=== PATIENT | male | born 1960 | race Caucasian/White ===

== ENCOUNTER 2018-07-07 12:54 | Emergency (ER) | payer BC ==
[2018-07-07] MEDS ORDERED: Aspirin 81 MG Tab.Chew PO ONE (13:21)
--- NOTE | 2018-07-07 13:25 | EDM.PDOC ---
ED HPI GENERAL MEDICAL PROBLEM - General Chief Complaint: Chest Pain Stated Complaint: CHEST TIGHTNESS X 2 DAYS Time Seen by Provider: 07/07/18 13:20 Source of Information: Reports: Patient History Limitations: Reports: No Limitations - History of Present Illness INITIAL COMMENTS - FREE TEXT/NARRATIVE: 57-year-old male presents to the ED with some retrosternal pressure discomfort rating slightly to the right of the sternum. Is in the midline and does not radiate through his back. No associated abdominal aphasia. Not prone to heart burn. He's been ill with upper respiratory tract infection and does have a mild paroxysmal productive cough. Remains nasally congested. He came across from the clinic where he had just been seen. He is placed on amoxicillin 500 mg 3 times a day for suspect sinus infection. They advised him to come to the ED for further evaluation in case she was having cardiac problems. Patient has no history of cardiac disease. He does have high cholesterol and is on a statin for this. Describes the pain as a very vague pressure discomfort maybe 1 or 2 out of 10. Onset: Today Onset Date: 07/07/18 Onset Time: 07:00 (Started this morning after he got up for the day.) Duration: Hour(s):, Constant Location: Reports: Chest Quality: Reports: Ache (Central chest discomfort perhaps a little more to the right of the sternum than the left.), Dull (Described as a dull mild ache discomfort) Severity: Mild (One or 210) Improves with: Reports: None Worsens with: Reports: None Context: Denies: Activity, Exercise, Lifting, Sick Contact, Trauma, Other Associated Symptoms: Reports: Chest Pain, Cough, cough w sputum (Till has a cough and does bring up occasional sputum.), Loss of Appetite (Has been ill with upper respiratory tract infection and has lost his sense of taste for a little bit), Other. Denies: No Other Symptoms (See history of present illness) , Confusion, Diaphoresis, Fever/Chills, Headaches, Malaise, Nausea/Vomiting, Rash, Seizure, Shortness of Breath, Syncope Treatments TOURIST GUIDE: Reports: Other (see below) Chest Pain Score (Numeric/FACES): 1 - Related Data Allergies Allergy/AdvReac Type Severity Reaction Status Date / Time guaifenesin [From Mucinex] Allergy Nausea Verified 07/07/18 13:19 neomycin Allergy Nausea Verified 07/07/18 13:19 shrimp Allergy Nausea Verified 07/07/18 13:19 Home Meds: Home Meds Amoxicillin 500 mg PO BID 07/07/18 [History] Levothyroxine Sodium [Synthroid] 175 mcg PO DAILY 07/07/18 [History] Pravastatin Sodium 20 mg PO DAILY 07/07/18 [History] Past Medical History HEENT History: Reports: Sinusitis Cardiovascular History: Reports: High Cholesterol Endocrine/Metabolic History: Reports: Hypothyroidism (Is on levothyroxine supplement.) - Past Surgical History Musculoskeletal Surgical History: Reports: Hip Replacement Other Musculoskeletal Surgeries/Procedures:: left Social & Family History - Tobacco Use Smoking Status *Q: Never Smoker - Caffeine Use Caffeine Use: Reports: Coffee, Soda - Recreational Drug Use Recreational Drug Use: No - Living Situation & Occupation Living situation: Reports: Occupation: Employed ED ROS GENERAL - Review of Systems Review Of Systems: See Below Constitutional: Reports: Fatigue (Is getting over a bad cold.), Decreased Appetite. Denies: Fever, Chills, Malaise HEENT: Reports: Sinus Problem Respiratory: Reports: Cough, Sputum. Denies: Wheezing, Pleuritic Chest Pain, Hemoptysis Cardiovascular: Reports: Chest Pain (Occasional sputum production some central pressure chest heaviness today. Therefore advised to come across from the clinic for checkup.), Blood Pressure Problem. Denies: Claudication, Dyspnea on Exertion, Edema, Lightheadedness, Orthopnea (Usually blood pressure is okay. Is slightly elevated 153/97 now.), Palpitations Endocrine: Reports: No Symptoms GI/Abdominal: Reports: Decreased Appetite : Reports: No Symptoms Musculoskeletal: Reports: No Symptoms Skin: Reports: No Symptoms Neurological: Reports: No Symptoms Psychiatric: Reports: No Symptoms Hematologic/Lymphatic: Reports: No Symptoms ED EXAM, GENERAL - Physical Exam Exam: See Below Exam Limited By: No Limitations General Appearance: Alert, WD/WN, No Apparent Distress, Other Eye Exam: Bilateral Eye: Normal Inspection Throat/Mouth: Normal Inspection, Normal Lips, Normal Oropharynx Head: Atraumatic, Normocephalic Neck: Normal Inspection, Supple, Non-Tender. No: Full Range of Motion, Carotid Bruit, Lymphadenopathy (R) Respiratory/Chest: No Respiratory Distress, Lungs Clear, Normal Breath Sounds ( Mild tachypnea at rest 20/m. O2 sats are 99% on room air.), No Accessory Muscle Use, Respiratory Distress Cardiovascular: Normal Peripheral Pulses, Regular Rate, Rhythm, No Edema, No Gallop, No Murmur, No Rub Peripheral Pulses: 3+: Posterior Tibial (L), Posterior Tibial (R), Dorsalis Pedis (L), Dorsalis Pedis (R) GI/Abdominal: Normal Bowel Sounds, Soft, Non-Tender, No Organomegaly, No Abnormal Bruit, No Mass, Pelvis Stable Back Exam: Normal Inspection, Full Range of Motion. No: CVA Tenderness (L), CVA Tenderness (R) Extremities: Normal Inspection, Normal Range of Motion, Non-Tender, No Pedal Edema Neurological: Alert, Oriented, CN II-XII Intact, Normal Cognition, Normal Gait Psychiatric: Normal Affect, Normal Mood Skin Exam: Warm, Dry, Intact, Normal Color, No Rash EKG INTERPRETATION EKG Date: 07/07/18 Time: 13:18 Rhythm: NSR Rate (Beats/Min): 87 Diboll: LAD-Left Diboll Deviation (-25) P-Wave: Present (P-wave is inverted in V1 suggesting ectopic atrial beat.) QRS: Other (There are near Q waves in leads V1 and V2 and V3 suggesting an old anteroseptal myocardial infarction. There is decreased voltage in leads V4 to V6 suggestive of COPD pattern. So near Q waves in 3 and aVF suggestive of an old inferior wall myocardial infarction. I'll R-wave in one is suggestive of left ventricular hypertrophy pattern) ST-T: Other (There is T-wave flattening in leads 3 and aVF. Nonspecific finding) QT: Prolonged (Borderline prolonged.) EKG Interpretation Comments: Abnormal ECG. No signs of acute ischemia however Course - Vital Signs Last Recorded V/S: Last Vital Signs Temp 36.6 C 07/07/18 13:11 Pulse 92 07/07/18 13:11 Resp 20 07/07/18 13:11 BP 153/97 H 07/07/18 13:11 Pulse Ox 99 07/07/18 13:11 - Orders/Labs/Meds Orders: Active Orders 24 hr Category Date Time Status EKG Documentation Completion [RC] STAT Care 07/07/18 13:20 Active C-REACTIVE PROTEIN [CHEM] Stat Lab 07/07/18 13:10 Results CBC WITH MANUAL DIFF [HEME] Stat Lab 07/07/18 13:10 Results CKMB [CHEM] Stat Lab 07/07/18 13:10 Results COMPREHENSIVE METABOLIC PN,CMP [CHEM] Stat Lab 07/07/18 13:10 Results MAGNESIUM [CHEM] Stat Lab 07/07/18 13:10 Results TROPONIN I [CHEM] Stat Lab 07/07/18 13:10 Results Labs: Laboratory Tests 07/07/18 07/07/18 07/07/18 Range/Units 13:10 13:10 13:10 WBC 9.16 H (4.23-9.07) K/mm3 RBC 5.48 (4.63-6.08) M/mm3 Hgb 16.7 (13.7-17.5) gm/L Hct 50.1 (40.1-51.0) % MCV 91.4 (79.0-92.2) fl MCH 30.5 (25.7-32.2) pg MCHC 33.3 (32.2-35.5) g/dl RDW Std Deviation 45.6 H (35.1-43.9) fL Plt Count 261 (163-337) K/mm3 MPV 11.2 (9.4-12.3) fl Sodium 140 (136-145) mEq/L Potassium 4.0 (3.5-5.1) mEq/L Chloride 103 (98-107) mEq/L Carbon Dioxide 28 (21-32) mEq/L Anion Gap 13.0 (5-15) BUN 15 (7-18) mg/dL Creatinine 1.2 (0.7-1.3) mg/dL Est Cr Clr Drug Dosing 68.44 mL/min Estimated GFR (MDRD) > 60 (>60) mL/min BUN/Creatinine Ratio 12.5 L (14-18) Glucose 170 H (74-106) mg/dL Calcium 9.7 (8.5-10.1) mg/dL Magnesium 2.1 (1.8-2.4) mg/dl Total Bilirubin 0.6 (0.2-1.0) mg/dL AST 28 (15-37) U/L ALT 61 (16-63) U/L Alkaline Phosphatase 57 (46-116) U/L CK-MB (CK-2) 1.0 (0-3.6) ng/ml Troponin I < 0.017 (0.00-0.056) ng/mL NT-Pro-B Natriuret Pep 50 (0-125) pg/mL Total Protein 7.9 (6.4-8.2) g/dl Albumin 4.4 (3.4-5.0) g/dl Globulin 3.5 gm/dL Albumin/Globulin Ratio 1.3 (1-2) TSH 3rd Generation (0.358-3.74) uIU/mL 07/07/18 Range/Units 13:10 WBC (4.23-9.07) K/mm3 RBC (4.63-6.08) M/mm3 Hgb (13.7-17.5) gm/L Hct (40.1-51.0) % MCV (79.0-92.2) fl MCH (25.7-32.2) pg MCHC (32.2-35.5) g/dl RDW Std Deviation (35.1-43.9) fL Plt Count (163-337) K/mm3 MPV (9.4-12.3) fl Sodium (136-145) mEq/L Potassium (3.5-5.1) mEq/L Chloride (98-107) mEq/L Carbon Dioxide (21-32) mEq/L Anion Gap (5-15) BUN (7-18) mg/dL Creatinine (0.7-1.3) mg/dL Est Cr Clr Drug Dosing mL/min Estimated GFR (MDRD) (>60) mL/min BUN/Creatinine Ratio (14-18) Glucose (74-106) mg/dL Calcium (8.5-10.1) mg/dL Magnesium (1.8-2.4) mg/dl Total Bilirubin (0.2-1.0) mg/dL AST (15-37) U/L ALT (16-63) U/L Alkaline Phosphatase (46-116) U/L CK-MB (CK-2) (0-3.6) ng/ml Troponin I (0.00-0.056) ng/mL NT-Pro-B Natriuret Pep (0-125) pg/mL Total Protein (6.4-8.2) g/dl Albumin (3.4-5.0) g/dl Globulin gm/dL Albumin/Globulin Ratio (1-2) TSH 3rd Generation 3.319 (0.358-3.74) uIU/mL Meds: Medications Discontinued Medications Generic Name Dose Route Start Last Admin Trade Name Kellee PRN Reason Stop Dose Admin Aspirin 324 mg 07/07/18 13:21 07/07/18 13:32 Aspirin PO 07/07/18 13:22 324 mg ONETIME ONE Administration - Radiology Interpretation Free Text/Narrative:: 57-year-old male attends the ED with some central chest heaviness pressure discomforts since he got up this morning. Nail with upper respiratory tract infection which includes a mild productive cough. He was just seen at the clinic and prescribed amoxicillin 500 mg 3 times a day as he is going on vacation in [facility] in the next few days. He has no known heart condition. He is on medication for high elevated cholesterol. Initial blood pressure is slightly elevated came down to 139/85 within 10 minutes of being in the ED. ECG done by triage nurse is abnormal in terms that there is near Q waves in V1 and V2 and V3 suggestive of an old anteroseptal myocardial infarction. There is decreased voltage in the V4 to V6 leads. 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 Tall R wave in lead 1 is suggestive of left ventricular hypertrophy pattern. Is also a left axis deviation of -25. Definitely abnormal ECG. No signs of acute ischemia. He'll be given aspirin 324 mg chewed. At this time his pain is minimal and ease smiling and happy. One view chest x-ray routine labs to include cardiac markers magnesium and BNP - Re-Assessments/Exams Free Text/Narrative Re-Assessment/Exam: 07/07/18 14:08 Labs reveal a normal white count at 9.16. Differential pending hemoglobin slightly elevated at 16.7 with hematocrit of 50.1 suggesting mild hemoconcentration. He 1000. Sodium 140 with potassium of 4.0. Toward 103 with a bicarbonate 28. And a gap is 13.0. BUN is 15 with a any new 1.2. GFR is greater than 60. Glucose is slightly elevated at 170. Calcium is 9.7 magnesium 2.1. Liver function normal. CK-MB 1.0 troponin I less than 0.017. C-reactive protein is pending. Total protein 7.9 albumin is 4.4. Stressed the findings with the patient. After looking at his ECG I would advise him to have an ECG stress test when he gets home from [facility]. He will follow-up with Dr. Lopez his primary care physician when he gets home to set this up. Departure - Departure Time of Disposition: 14:17 Disposition: Home, Self-Care 01 Condition: Fair Clinical Impression: Non-cardiac chest pain Instructions: Nonspecific Chest Pain, [id number] Referrals: Walt Lopez MD [Primary Care Provider] - Forms: ED Department Discharge Additional Instructions: Evaluation the emergency room today in regards to central chest discomfort today. Associated mild upper respiratory tract infection. Sound clear. ECG suggested possible old anteroseptal and inferior wall myocardial infarction of you have no history of coronary disease. Complete cardiac workup revealed normal cardiac markers and no evidence of heart related illness. Chest x-ray also was within normal limits. No signs of pneumonia. Have some mild pleural pleuritic pain at this point time associate with upper respiratory tract infection. Suggest Motrin 600 mg every 6 hours if needed for discomfort. I feel it is okay for you to travel tomorrow and to scuba dive as planned. Suggest follow-up with Dr. Lopez when you get back to set up an ECG stress test. - My Orders Last 24 Hours: My Active Orders 07/07/18 13:10 C-REACTIVE PROTEIN [CHEM] Stat CBC WITH MANUAL DIFF [HEME] Stat CKMB [CHEM] Stat COMPREHENSIVE METABOLIC PN,CMP [CHEM] Stat MAGNESIUM [CHEM] Stat TROPONIN I [CHEM] Stat 07/07/18 13:20 EKG Documentation Completion [RC] STAT - Assessment/Plan Last 24 Hours: My Active Orders 07/07/18 13:10 C-REACTIVE PROTEIN [CHEM] Stat CBC WITH MANUAL DIFF [HEME] Stat CKMB [CHEM] Stat COMPREHENSIVE METABOLIC PN,CMP [CHEM] Stat MAGNESIUM [CHEM] Stat TROPONIN I [CHEM] Stat 07/07/18 13:20 EKG Documentation Completion [RC] STAT
--- NOTE | 2018-07-07 14:23 | CR ---
Chest: Portable view of the chest was obtained. Comparison: No prior chest x-ray is available. Heart size and mediastinum are within normal limits for portable technique. Lungs are clear with no acute parenchymal change. Bony structures are grossly intact. Impression: 1. Nothing acute is seen on portable chest x-ray. Diagnostic code #1
== END 2018-07-07 14:33 | disposition home or self-care (01) ==
LOC: JD.ED 12:54
DX: R07.89 Other chest pain (principal); E03.9 Hypothyroidism, unspecified; Z88.8 Allergy status to other drugs, medicaments and biological substances
CPT/HCPCS: 36415; 71045; 80053; 82553; 83735; 83880; 84443; 84484; 85007; 85027; 86140; 93005; 99285; A9270; 93010